=== PATIENT | male | born 1940 | race Caucasian/White ===

== ENCOUNTER 2020-04-01 11:55 | Inpatient (IN) | payer BC, OTHER ==
[~2020-04-01] VITALS: Ht 172.7 cm; Wt 59.0 kg
[2020-04-01 13:08] LABS: Basophils # (auto) 0 10 ^3/uL (0-0.2); Basophils % (auto) 0.6 % (0.0-2.0); Eosinophils # (auto) 0.6 10 ^3/uL (0-0.8); Eosinophils % (auto) 8.7 % (0.0-7.0); Hemoglobin 12.9 g/dL (13.5-17.5); Lymphocytes # (auto) 1.2 10 ^3/uL (0.4-5.4); Lymphocytes % (auto) 18.4 % (10.0-50.0); Mean Corpuscular Hemoglobin 31.6 pg (28.0-32.0); Mean Corpuscular Hgb Conc. 33.1 g/dL (32.0-36.0); Mean Corpuscular Volume 95.4 fL (80.0-100.0); Monocytes # (auto) 0.6 10 ^3/uL (0-1.3); Monocytes % (auto) 9.7 % (0.0-12.0); Neutrophils # (auto) 4.1 10 ^3/uL (1.6-8.6); Neutrophils % (auto) 62.6 % (37.0-80.0); Platelet Count (auto) 155 10^3/uL (140-450); Red Blood Cells 4.09 10^6/uL (4.5-5.90); Red Cell Distribution Width 13.3 % (11.8-14.3); White Blood Cell 6.5 10^3/uL (4.4-10.8)
[2020-04-01 13:52] LABS: Albumin 3.4 g/dL (3.4-5.0); Anion Gap 6 (5-15); Blood Urea Nitrogen 16 mg/dL (7-18); Carbon Dioxide 29 mmol/L (21-32); Chloride 102 mmol/L (98-107); Glucose 98 mg/dL (74-106); Potassium 4.3 mmol/L (3.5-5.1); Sodium 137 mmol/L (136-145)
[2020-04-01 13:58] LABS: Alanine Aminotransferase 8 U/L (16-61); Alkaline Phosphatase 82 U/L (45-117); Aspartate Aminotransferase 10 U/L (15-37); BUN/Creatinine Ratio 18.6; GFR African American 110 mL/min; GFR Non-African American 91 mL/min; Total Protein 7.1 g/dL (6.4-8.2)
[2020-04-01] MEDS ORDERED: CARBIDOPA W LEVODOPA 25/100mg TABLET PO ONE ×2 (16:30→16:45)
[2020-04-01] MEDS ORDERED: SODIUM CHLORIDE 0.9% 500 ML IV ONE (16:30)
[2020-04-01] MEDS ORDERED: ATENOLOL 25 MG TAB PO ONE (16:45)
[2020-04-01] MEDS ORDERED: LISINOPRIL 5 MG TAB PO ONE (16:45)
[2020-04-01] MEDS ORDERED: FINASTERIDE 5 MG TAB PO ONE ×2 (16:45→17:45)
[2020-04-01] MEDS ORDERED: ASPirin 81 mg TAB PO ONE (16:45)
[2020-04-01 17:01] LABS: Urine WBC None Seen /hpf (0 - 3)
[2020-04-01 17:09] LABS: Urine Bacteria NONE SEEN /hpf (None Seen); Urine Blood TRACE /uL (Negative); Urine Specific Gravity 1.006 (1.001-1.035)
[2020-04-01 20:30] VITALS: BP 145/61
--- NOTE | 2020-04-01 20:30 | NUR ---
Opening Shift Note Assumed care of patient, awake and alert. Pt oriented only to self, patient has history of dementia. Unable to answer questions or follow many commands. No S/S of distress/SOB or pain. Safety measures in place, bed in lowest locked position, bed rails raised x3, sitter at bedside, call light within reach. Instructed on POC and to call for assist PRN, will continue to monitor for changes Q1hr and PRN.
--- NOTE | 2020-04-01 20:30 | NUR ---
Admission Assessment Patient is alert and oriented to self. Admission assessment completed with the assistance of daughter Beena Man and medical record. Per daughter, Beena Man, patient takes medications at home but Beena does not know what medications her father takes. Per Beena she will have patient's call us and give us a list of patients home medications via phone. Primary VERONICA harden. Addendum: 04/01/20 at 2250 by MERT ROSADO RN RN Received call from Kareen Man. Home medication reconciliation completed with the assistance of Kareen.
[2020-04-01 21:09] VITALS: BP 135/59
[2020-04-01] MEDS ORDERED: ATEN-60 PO (22:47)
[2020-04-01] MEDS ORDERED: ASPI325T4 PO (22:47)
[2020-04-01] MEDS ORDERED: LISI-648 PO (22:47)
[2020-04-01] MEDS ORDERED: FINA5TAB4 PO (22:47)
[2020-04-01] MEDS ORDERED: CARB1TAB44 PO (22:47)
[2020-04-01] MEDS ORDERED: SIMV-8 PO (22:47)
[2020-04-01] MEDS ORDERED: AMLO5TAB15 PO (22:47)
[2020-04-01] MEDS: PRAVASTATIN SODIUM 20 MG TAB PO SCH (23:13)
--- NOTE | 2020-04-01 23:15 | NUR ---
contact info Valentina Man [phone]
--- NOTE | 2020-04-01 23:16 | NUR ---
Spoke with , updated on patient status. All questions and concerns addressed at this time.
[2020-04-02 04:49] VITALS: BP 141/63
[2020-04-02 08:00] VITALS: BP 121/65
[2020-04-02 09:22] VITALS: BP 121/65
[2020-04-02] MEDS: ATENOLOL 25 MG TAB PO SCH (09:47)
[2020-04-02] MEDS: FINASTERIDE 5 MG TAB PO SCH (09:49)
[2020-04-02] MEDS: LISINOPRIL 5 MG TAB PO SCH (09:50)
[2020-04-02] MEDS ORDERED: ASPirin-EC 325mg tab PO SCH (10:00)
--- NOTE | 2020-04-02 10:40 | NUR ---
SPOKE TO PATIENT'S ABOUT CONSENT FOR DNR. DOCTOR SIGNED DNR FORM. PLACED IN HARD CHART.
[2020-04-02] MEDS ORDERED: LACTULOSE 20Gm/30ML SOLN PO PRN (10:45)
--- NOTE | 2020-04-02 11:10 | NUR ---
PT IS VERY TIRED AND UNABLE TO PARTICIPATE IN P.T. TODAY.
--- NOTE | 2020-04-02 13:33 | NUR ---
Gave update to and daughter after MD had attended to patient. Reiterated to daughter again our current no visitor policy for safety reasons as she continues to request to visit patient.
[2020-04-02] MEDS ORDERED: CARBIDOPA W LEVODOPA 25/100mg TABLET PO SCH (14:00)
[2020-04-02 14:09] VITALS: BP 111/88
[2020-04-02 16:42] VITALS: BP 142/76
--- NOTE | 2020-04-02 16:50 | NUR ---
patient observed ambulating in the hallway with physical therapy. Tolerated well, no s/s distress noted
--- NOTE | 2020-04-02 19:15 | NUR ---
Opening Shift Note Assumed care of patient, awake and alert. Arousable to name, oriented to person only, rambles and will follow some simple commends. No S/S of distress/SOB or pain. Safety measures in place, bed in lowest locked position, bed rails raised x2, call light within reach, sitter at bedside. Linen change performed. Instructed on POC and to call for assist PRN, will continue to monitor for changes Q1hr and PRN.
[2020-04-02 22:00] VITALS: BP 99/61
[2020-04-02] MEDS: CARBIDOPA W LEVODOPA 25/100mg TABLET PO SCH (22:03)
[2020-04-02] MEDS: PRAVASTATIN SODIUM 20 MG TAB PO SCH (22:03)
[2020-04-03 05:00] VITALS: BP 132/72
[2020-04-03 08:10] VITALS: BP 117/77
--- NOTE | 2020-04-03 08:10 | NUR ---
Patient resting comfortably in bed with no distress noted and sitter at bedside. Patient stable.
[2020-04-03 09:00] VITALS: BP 119/77
--- NOTE | 2020-04-03 09:42 | NUR ---
Patient ambulating in hallway with walker and PT assistance.
[2020-04-03] MEDS: LISINOPRIL 5 MG TAB PO SCH (09:52)
[2020-04-03] MEDS: FINASTERIDE 5 MG TAB PO SCH (09:52)
[2020-04-03] MEDS: ATENOLOL 25 MG TAB PO SCH (09:53)
[2020-04-03] MEDS: CARBIDOPA W LEVODOPA 25/100mg TABLET PO SCH (09:53)
--- NOTE | 2020-04-03 09:55 | NUR ---
Scheduled medications given per order. Patient resting comfortably in bed with MOJGAN Serna and sitter at bedside. Patient stable.
[2020-04-03] MEDS ORDERED: ASPirin-EC 81 mg tab PO SCH (10:00)
[2020-04-03] MEDS ORDERED: ENOXAPARIN SOD 40 MG/0.4 ML SYRINGE SC SCH (10:00)
--- NOTE | 2020-04-03 11:30 | NUR ---
Patient resting quietly in bed with sitter at bedside. Patient stable.
[2020-04-03 13:00] VITALS: BP 109/65
--- NOTE | 2020-04-03 13:00 | NUR ---
Patient resting comfortably in bed with sitter at bedside. Patient stable.
[2020-04-03] MEDS ORDERED: CARB1TAB44 PO (14:14)
--- NOTE | 2020-04-03 14:30 | NUR ---
Assessment Patient is an 80-year-old male. Assessment was completed with patient daughter Beena . Prior to admission patient lived home with family and functioned with assistance. Per Beena patient has a cane for home use. Per Beena patient will return home to his prior living arrangements post discharge and family will transport home. Advised Beena there is a social service consult for home health physical therapy, walker and a 3 in 1 commode. Informed Beena clinical information will be faxed to [facility] and for DME. Per Beena she would like the walker and commode to be deliver to patient home [id number] [facility] [id number]. Informed Beena she has a right to participate in all discharge planning. Beena verbalized understanding and agreed to discharge plan home. Faxed clinical information to [facility], and [facility]. Per Annabella with [facility] patient has been accepted and service to start within 24-48hrs upon d/c day. will deliver medical equipment to home upon d/c day. Informed bedside nurse. Addendum: 04/04/20 at 0839 by ZOHAIB DRAKE Amended: Links added.
[2020-04-03 14:55] VITALS: BP 109/65
--- NOTE | 2020-04-03 15:00 | NUR ---
Patient stable at this time with sitter at bedside.
[2020-04-03 17:00] VITALS: BP 140/91
--- NOTE | 2020-04-03 17:55 | NUR ---
Patient dressed and taken to lobby for discharge to home with family.
--- NOTE | 2020-04-03 18:05 | NUR ---
Discharge instructions / discharge Both written and verbal discharge instructions given to , Kareen and daughter, [place]. Both verbalized understanding of instructions. All belongings with patient. Patient discharged to home in stable condition.
== END 2020-04-03 17:55 | disposition home health service (06) | DRG 57 ==
LOC: EDBD 11:55 → ER 11:55 → TELE 11:56 → TELE-WESTW 20:35
PROVIDERS: ADMIT Hospitalist; ATTEND Hospitalist
DX: G20 Parkinson's disease (principal); E86.0 Dehydration; F02.80 Dementia in other diseases classified elsewhere, unspecified severity, without behavioral disturbance, psychotic disturbance, mood disturbance, and anxiety; R55 Syncope and collapse; I11.9 Hypertensive heart disease without heart failure; Z82.49 Family history of ischemic heart disease and other diseases of the circulatory system
CPT/HCPCS: 36415; 70450; 71045; 80053; 81001; 84484; 85025; 93005; G0378